=== PATIENT | female | born 1990 | race Caucasian/White ===

== ENCOUNTER 2019-09-19 23:39 | Emergency (ER) | payer SELFPAY ==
[~2019-09-19] VITALS: Ht 149.9 cm; Wt 45.4 kg
[2019-09-19 23:46] VITALS: Ht 149.9 cm; Wt 45.4 kg
[2019-09-20 01:50] LABS: BASOPHIL % 2.2 % (0-2); PLATELET COUNT 412 x10^3mcL (130-400)
[2019-09-20 01:59] LABS: CALCIUM 8.9 mg/dL (8.5-10.1); CARBON DIOXIDE 30.7 mmol/L (21-32); CHLORIDE SERUM 105 mmol/L (98-107); CREATININE SERUM 0.6 mg/dL (0.6-1.0); GFR1 > 60 mL/min; GLUCOSE SERUM 93 mg/dL (74-106); SODIUM SERUM 141 mmol/L (136-145)
[2019-09-20 02:03] LABS: ALBUMIN 4.1 g/dL (3.4-5.0); ALKALINE PHOSPHATASE 52 U/L (46-116); ALT/SGPT 26 U/L (14-59); AST/SGOT 18 U/L (15-37); TOTAL PROTEIN, SERUM 7.6 g/dL (6.4-8.2)
[2019-09-20 05:59] VITALS: BP 137/69
== END 2019-09-20 05:59 | disposition left against medical advice (07) ==
LOC: ED 23:39
DX: R10.9 Unspecified abdominal pain (principal); N93.9 Abnormal uterine and vaginal bleeding, unspecified; Z53.1 Procedure and treatment not carried out because of patient's decision for reasons of belief and group pressure
CPT/HCPCS: 36415